=== PATIENT | male | born 1960 ===

== ENCOUNTER 2025-04-03 16:32 | Inpatient (IN) | payer MEDICARE, SELFPAY ==
[2025-04-03] VITALS (53 sets, daily range): BP systolic 136–251; BP diastolic 84–168; PULSE 70–86; RESP 12–22; TEMP 36.5; O2SAT 94–99; BMI 29.5
--- NOTE | 2025-04-03 16:56 | EKG_ITS ---
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
--- NOTE | 2025-04-03 17:52 | ED.GENADULT ---
HPI - General Adult General Chief complaint: Hypertension Stated complaint: Dizziness [id number] Time Seen by Provider: 04/03/25 17:31 History of Present Illness HPI narrative: Patient here for off and on dizziness for past 3 weeks. Blood pressure noted. Patient ran out of his blood pressure medication 1 month ago. Patient is supposed to be on amlodipine and losartan. He is visiting here from [place]. He is staying with his daughter because son-in-law is on deployment. He denies denies any chest pain palpitations no numbness tingling or weakness. No slurred speech or facial droop. No headache. Patient felt lightheaded today again. Reviewed with him it is very important to take his blood pressure medications. To get refills. Patient in no distress at this time. No dizziness Related Data Previous Rx's ?Medication ?Instructions ?Recorded amlodipine 10 mg tablet 10 mg PO DAILY #30 tabs 04/05/25 blood sugar diagnostic (Glucocom #50 ea 04/05/25 Glucose strips) blood-glucose meter (Gluco Navii #1 ea 04/05/25 Glucose Monitor kit) glipizide 10 mg tablet 10 mg PO BIDWM #60 tabs 04/05/25 insulin glargine 100 unit/mL (3 30 unit (0.3 mL) SUBCUT BEDTIME 04/05/25 mL) subcutaneous pen (Lantus #15 mL Solostar U-100 Insulin) insulin lispro 100 unit/mL 3 unit (0.03 mL) SUBCUT AC #15 mL 04/05/25 subcutaneous solution (Admelog U-100 Insulin lispro) lancets (Lancets, Super Thin) #100 ea 04/05/25 losartan 50 mg tablet 50 mg PO DAILY #30 tabs 04/05/25 metoprolol succinate 25 mg 25 mg PO DAILY #30 tabs 04/05/25 tablet,extended release 24 hr Allergies Allergy/AdvReac Type Severity Reaction Status Date / Time No Known Drug Allergies Allergy Verified 04/03/25 16:47 Review of Systems Review of Systems Narrative: GENERAL: Negative chills, fatigue, malaise, fever, sweats. HEENT: Negative sinus pain, ear pain, sore throat RESPIRATORY: Negative dyspnea, cough CARDIOVASCULAR: Negative chest pain, palpitations GASTROINTESTINAL: Negative vomiting, nausea, abdominal pain : Negative dysuria, frequency, hematuria MUSCULOSKELETAL: Negative muscle or bony pain SKIN: Negative rash, skin lesions NEUROLOGIC: Negative weakness, numbness positive dizziness ROS Unobtainable: All systems reviewed & are unremarkable except as noted in HPI and below Patient History Social History household members: spouse Smoking Status: Never smoker alcohol intake: never Exam Narrative Exam Narrative: GENERAL: in no distress, not toxic not dyspneic HEAD: Normocephalic. EYES: Pupils equal round ENT: Mucous membranes moist. NECK: Trachea midline. CARDIOVASCULAR: Regular rate and rhythm RESPIRATORY: Clear to auscultation. Breath sounds equal bilaterally. No wheezes, rales, or rhonchi. GASTROINTESTINAL: Abdomen soft, non-tender EXTREMITIES: No gross deformities. BACK: No flank tenderness. NEURO: AOx4. Clear speech fast exam is negative. No facial droop light touch intact bilateral face and hands strong equal chemical plant manager SKIN: Warm and dry PSYCH: Not anxious, is cooperative Initial Vital Signs Initial Vital Signs: Vital Signs Temperature 97.7 F 04/03/25 16:44 Pulse Rate 77 04/03/25 16:44 Respiratory Rate 16 04/03/25 16:44 Blood Pressure 249/130 H 04/03/25 16:44 Pulse Oximetry 97 04/03/25 16:44 Oxygen Delivery Method Room Air 04/03/25 16:44 Course Orders Ordered: Discontinued Medications Amlodipine Besylate (Amlodipine 5 Mg Tablet) 5 mg PO NOW ONE Stop: 04/03/25 17:59 Last Admin: 04/03/25 18:20 Dose: 5 mg Documented By: MANPREET Amlodipine Besylate (Amlodipine 5 Mg Tablet) 5 mg PO NOW ONE Stop: 04/03/25 19:55 Last Admin: 04/03/25 20:04 Dose: 5 mg Documented By: ENZOF Amlodipine Besylate (Amlodipine 5 Mg Tablet) 10 mg PO DAILY [facility] Last Admin: 04/05/25 08:11 Dose: 10 mg Documented By: Admin: 04/04/25 08:25 Dose: 10 mg Documented By: Heparin Sodium (Porcine) (Heparin 5,000 Unit/Ml Vial) 5,000 unit SUBCUT BID [facility] Last Admin: 04/05/25 08:10 Dose: 5,000 unit Documented By: Admin: 04/04/25 21:14 Dose: 5,000 unit Documented By: ELSA Nicardipine HCl 25 mg/ Sodium (Chloride) 250 mls @ 50 mls/hr IV TITRATE TANESHA; Protocol Last Titration: 04/04/25 12:07 Dose: 0 mg/hr, 0 mls/hr Documented By: Titration: 04/04/25 11:40 Dose: 2.5 mg/hr, 25 mls/hr Documented By: Admin: 04/04/25 10:55 Dose: 5 mg/hr, 50 mls/hr Documented By: Titration: 04/04/25 10:36 Dose: Infused Documented By: Titration: 04/04/25 09:33 Dose: 5 mg/hr, 50 mls/hr Documented By: Titration: 04/04/25 03:38 Dose: 2.5 mg/hr, 25 mls/hr Documented By: Admin: 04/04/25 02:38 Dose: 5 mg/hr, 50 mls/hr Documented By: Titration: 04/04/25 02:38 Dose: Infused Documented By: Titration: 04/04/25 02:09 Dose: 5 mg/hr, 50 mls/hr Documented By: Titration: 04/04/25 01:07 Dose: 7.5 mg/hr, 75 mls/hr Documented By: Titration: 04/03/25 23:56 Dose: 5 mg/hr, 50 mls/hr Documented By: Titration: 04/03/25 22:07 Dose: 2.5 mg/hr, 25 mls/hr Documented By: Admin: 04/03/25 21:31 Dose: 5 mg/hr, 50 mls/hr Documented By: ENZOF Dextrose (D10w) 100 mls @ 999 mls/hr IV PRN PRN PRN Reason: Hypoglycemia Sodium Chloride (Normal Saline 0.9%) 1,000 mls @ 75 mls/hr IV CONT TANESHA Stop: 04/04/25 10:00 Last Infusion: 04/04/25 10:27 Dose: Infused Documented By: Admin: 04/04/25 01:05 Dose: 75 mls/hr Documented By: JT Insulin Glargine (Insulin Glargine 100 Unit/Ml 3ml Pen) 20 unit SUBCUT BEDTIME TANESHA Insulin Glargine (Insulin Glargine 100 Unit/Ml 3ml Pen) 20 unit SUBCUT NOW ONE Stop: 04/04/25 00:22 Last Admin: 04/04/25 01:22 Dose: 20 unit Documented By: ELSA Co-signed By: ERICK Insulin Glargine (Insulin Glargine 100 Unit/Ml 3ml Pen) 30 unit SUBCUT BEDTIME [facility] Last Admin: 04/04/25 21:13 Dose: 30 unit Documented By: ELSA Co-signed By: ROME Insulin Human Lispro (Insulin Lispro 100 Unit/Ml 3ml Vial) 0 unit SUBCUT ACHS [facility]; Protocol Last Admin: 04/05/25 12:11 Dose: 3 unit Documented By: LORRIE Co-signed By: SHUKRI Admin: 04/05/25 08:08 Dose: 5 unit Documented By: LORRIE Co-signed By: SHUKRI Admin: 04/04/25 21:13 Dose: 3 unit Documented By: ELSA Co-signed By: ROME Admin: 04/04/25 16:56 Dose: 3 unit Documented By: Co-signed By: SHUKRI Admin: 04/04/25 11:53 Dose: 8 unit Documented By: Co-signed By: SHUKRI Admin: 04/04/25 08:24 Dose: 8 unit Documented By: Co-signed By: SHUKRI Insulin Human Lispro (Insulin Lispro 100 Unit/Ml 3ml Vial) 5 unit SUBCUT AC [facility] Insulin Human Lispro (Insulin Lispro 100 Unit/Ml 3ml Vial) 3 unit SUBCUT AC [facility] Last Admin: 04/05/25 12:11 Dose: 3 unit Documented By: LORRIE Co-signed By: SHUKRI Losartan Potassium (Losartan 25 Mg Tablet) 25 mg PO NOW ONE Stop: 04/03/25 17:59 Last Admin: 04/03/25 18:20 Dose: 25 mg Documented By: MANPREET Losartan Potassium (Losartan 25 Mg Tablet) 25 mg PO NOW ONE Stop: 04/03/25 19:55 Last Admin: 04/03/25 20:04 Dose: 25 mg Documented By: JAY Losartan Potassium (Losartan 50 Mg Tablet) 50 mg PO DAILY [facility] Last Admin: 04/05/25 08:09 Dose: 50 mg Documented By: Admin: 04/04/25 08:25 Dose: 50 mg Documented By: Metoprolol Succinate (Metoprolol Er 25 Mg Tablet) 25 mg PO DAILY [facility] Last Admin: 04/05/25 08:09 Dose: 25 mg Documented By: LORRIE Metoprolol Tartrate (Metoprolol Ir 25 Mg Tablet) 25 mg PO TID [facility] Last Admin: 04/04/25 10:57 Dose: 25 mg Documented By: Naloxone HCl (Naloxone 0.4 Mg/Ml Vial) 0.2 mg IV Q2MIN PRN PRN Reason: Opiate Reversal Non-Formulary Medication (Glipizide) 10 mg PO BIDWM [facility] Last Admin: 04/05/25 08:20 Dose: Not Given Documented By: Admin: 04/04/25 14:44 Dose: Not Given Documented By: Admin: 04/04/25 08:24 Dose: Not Given Documented By: Sodium Chloride (Sodium Chloride 0.9% Flush) 10 ml IV PRN PRN PRN Reason: Flush Sodium Chloride (Sodium Chloride 0.9% Flush) 10 ml IV BID [facility] Last Admin: 04/05/25 08:11 Dose: 10 ml Documented By: LORRIE Vital Signs Vital signs: Vital Signs - 8 hr 04/03/25 16:44 04/03/25 16:51 04/03/25 16:53 Temperature 97.7 F Pulse Rate 77 79 80 Respiratory Rate 16 Blood Pressure 249/130 H Pulse Oximetry 97 97 99 Oxygen Delivery Method Room Air 04/03/25 16:53 04/03/25 17:00 04/03/25 17:22 Temperature Pulse Rate 75 74 Respiratory Rate Blood Pressure 222/135 H Pulse Oximetry 98 97 Oxygen Delivery Method 04/03/25 17:22 04/03/25 17:30 04/03/25 17:31 Temperature Pulse Rate 75 76 Respiratory Rate Blood Pressure 190/119 H Pulse Oximetry 97 97 Oxygen Delivery Method 04/03/25 17:31 04/03/25 17:45 04/03/25 17:45 Temperature Pulse Rate 77 Respiratory Rate Blood Pressure 205/118 H 195/111 H Pulse Oximetry 97 Oxygen Delivery Method 04/03/25 18:00 04/03/25 18:01 04/03/25 18:01 Temperature Pulse Rate 82 79 Respiratory Rate Blood Pressure 251/125 H Pulse Oximetry 98 97 Oxygen Delivery Method 04/03/25 18:16 04/03/25 18:16 04/03/25 18:20 Temperature Pulse Rate 75 74 Respiratory Rate Blood Pressure 195/120 H 195/120 H Pulse Oximetry 98 Oxygen Delivery Method 04/03/25 18:36 04/03/25 18:37 04/03/25 18:37 Temperature Pulse Rate 71 70 Respiratory Rate Blood Pressure 213/127 H Pulse Oximetry 99 98 Oxygen Delivery Method 04/03/25 18:45 04/03/25 18:45 04/03/25 19:00 Temperature Pulse Rate 74 75 Respiratory Rate Blood Pressure 237/127 H Pulse Oximetry 98 96 Oxygen Delivery Method 04/03/25 19:01 04/03/25 19:01 04/03/25 19:10 Temperature Pulse Rate 80 75 Respiratory Rate Blood Pressure 222/109 H Pulse Oximetry 95 98 Oxygen Delivery Method 04/03/25 19:10 04/03/25 19:16 04/03/25 19:16 Temperature Pulse Rate 73 Respiratory Rate Blood Pressure 216/111 H 245/168 H Pulse Oximetry 99 Oxygen Delivery Method 04/03/25 19:17 04/03/25 19:17 04/03/25 19:30 Temperature Pulse Rate 76 77 Respiratory Rate Blood Pressure 232/125 H Pulse Oximetry 98 97 Oxygen Delivery Method 04/03/25 19:31 04/03/25 19:31 04/03/25 19:45 Temperature Pulse Rate 80 78 Respiratory Rate Blood Pressure 218/107 H Pulse Oximetry 97 98 Oxygen Delivery Method 04/03/25 19:45 04/03/25 20:00 04/03/25 20:00 Temperature Pulse Rate 83 Respiratory Rate Blood Pressure 231/117 H 223/137 H Pulse Oximetry 97 Oxygen Delivery Method 04/03/25 20:04 04/03/25 20:15 04/03/25 20:15 Temperature Pulse Rate 78 76 Respiratory Rate Blood Pressure 233/137 H 225/126 H Pulse Oximetry 97 Oxygen Delivery Method 04/03/25 20:30 04/03/25 20:31 04/03/25 20:31 Temperature Pulse Rate 74 79 Respiratory Rate Blood Pressure 218/124 H Pulse Oximetry 97 97 Oxygen Delivery Method 04/03/25 20:46 04/03/25 20:46 04/03/25 21:00 Temperature Pulse Rate 77 74 Respiratory Rate Blood Pressure 208/116 H Pulse Oximetry 97 98 Oxygen Delivery Method 04/03/25 21:01 04/03/25 21:01 04/03/25 21:16 Temperature Pulse Rate 71 76 Respiratory Rate Blood Pressure 203/118 H Pulse Oximetry 98 97 Oxygen Delivery Method 04/03/25 21:16 04/03/25 21:30 04/03/25 21:30 Temperature Pulse Rate 72 Respiratory Rate Blood Pressure 205/114 H 203/109 H Pulse Oximetry 97 Oxygen Delivery Method 04/03/25 21:37 04/03/25 21:37 04/03/25 21:40 Temperature Pulse Rate 74 76 Respiratory Rate Blood Pressure 219/168 H Pulse Oximetry 98 98 Oxygen Delivery Method 04/03/25 21:40 04/03/25 21:43 04/03/25 21:43 Temperature Pulse Rate 77 Respiratory Rate Blood Pressure 196/109 H 174/104 H Pulse Oximetry 96 Oxygen Delivery Method 04/03/25 21:45 04/03/25 21:45 04/03/25 21:48 Temperature Pulse Rate 79 76 Respiratory Rate Blood Pressure 177/104 H Pulse Oximetry 96 96 Oxygen Delivery Method 04/03/25 21:48 04/03/25 21:51 04/03/25 21:51 Temperature Pulse Rate 86 Respiratory Rate Blood Pressure 165/99 H 195/109 H Pulse Oximetry 96 Oxygen Delivery Method 04/03/25 21:54 04/03/25 21:54 Temperature Pulse Rate 80 Respiratory Rate Blood Pressure 161/87 H Pulse Oximetry 96 Oxygen Delivery Method Medical Decision Making Lab Data 04/04/25 05:14 04/04/25 05:14 Labs: Lab Results 04/03/25 Range/Units 17:05 WBC 6.1 (4.5-11.0) X10^3/uL RBC 5.74 (4.5-5.9) X10^6/uL Hgb 18.0 H (13.5-17.5) g/dL Hct 50.4 (41-53) % MCV 87.8 (80-100) fL MCH 31.3 (26-34) PG MCHC 35.6 (30-36) % RDW 12.4 (11.6-14.8) % Plt Count 159 (150-400) X10^3/uL Neut % (Auto) 47.2 L (50-75) % Lymph % (Auto) 41.9 H (25-40) % Posey % (Auto) 8.4 (3-14) % Eos % (Auto) 2.0 (2-4) % Baso % (Auto) 0.5 (0-2) % Neut # (Auto) 2900 (2520-0900) /uL Lymph # (Auto) 2600 (5933-5986) /uL Posey # (Auto) 500 (0-900) /uL Eos # (Auto) 100 (0-450) /uL Baso # (Auto) 0 (0-100) /uL Sodium 132 L (137-145) mmol/L Potassium 4.1 (3.4-5.1) mmol/L Chloride 97 L (98-107) mmol/L Carbon Dioxide 24 (22-32) mmol/L BUN 20 (9-20) mg/dL Creatinine 1.27 H (0.66-1.25) mg/dL Estimated GFR > 60 (>60) mL/min BUN/Creatinine Ratio 15.7 (6-22) Glucose 424 H (70-99) mg/dL Calcium 9.4 (8.4-10.2) mg/dL Total Bilirubin 0.9 (0.2-1.3) mg/dL AST 39 (17-59) IU/L ALT 26 (<50) IU/L Alkaline Phosphatase 120 (38-126) U/L Total Creatine Kinase 160 (55-170) U/L Troponin I 0.022 (0.01-0.034) ng/mL Total Protein 8.6 H (6.3-8.2) g/dL Albumin 4.6 (3.5-5.0) g/dL Globulin 4.0 (1.7-4.1) g/dL Albumin/Globulin Ratio 1.2 (1.0-2.8) Imaging Data CT scan - head: Radiologist's Impression: [address] [address] [address] Scan Report Signed Patient: Enoch Gonzalez MR#: [id number] : 1960 Acct:[id number] Age/Sex: 64 / M Date of Service: 04/03/25 Loc: ED Accession Number: [id number] Procedure: CT head/brain wo con Ordering Provider: Paulino Finley MD PROCEDURE: CT HEAD/BRAIN WO CON INDICATIONS: Dizzy TECHNIQUE: Noncontrast 4.5 mm thick angled axial sections acquired from the foramen magnum to the vertex, with coronal and sagittal reformats. For radiation dose reduction, the following was used: automated exposure control, adjustment of mA and/or kV according to patient size. COMPARISON: None. FINDINGS: Image quality: Diagnostic. CSF spaces: Basal cisterns are patent. No extra-axial fluid collections. Left posterior fossa arachnoid cyst suspected. Ventricles are normal in size and shape. Brain: No midline shift. No intracranial mass effect or hemorrhage. Botello-white matter interface is normal. Skull and face: Calvarium and visualized facial bones are intact, without suspicious lesions. Sinuses: Visualized sinuses and mastoids are clear. IMPRESSION: No acute intracranial pathology. Dictated by: Clifford Meyer M.D. on 04/03/2025 at 19:29 Approved by: Clifford Meyer M.D. on 04/03/2025 at 19:31 [facility] Narrative Medical decision making narrative: Patient here for off and on dizziness for past 3 weeks. Blood pressure noted. Patient ran out of his blood pressure medication 1 month ago. Patient is supposed to be on amlodipine and losartan. He is visiting here from [place]. He is staying with his daughter because son-in-law is on deployment. He denies denies any chest pain palpitations no numbness tingling or weakness. No slurred speech or facial droop. No headache. Patient felt lightheaded today again. Reviewed with him it is very important to take his blood pressure medications. To get refills. Patient in no distress at this time. No dizziness MDM After history and exam, CBC CMP troponin head CT EKG amlodipine losartan Differential considered: Includes but not limited to hyperintensity emergency hypertensive urgency stroke Medical records reviewed: No recent visit for this complaint Lab Test results independently reviewed as above. Pertinent findings: WBC 6.1 hemoglobin 18 sodium 132 potassium 4.1 BUN 20 creatinine 1.27 troponin 0.022 Independently reviewed EKG normal sinus rhythm rate [address]-elevation or depression. Right bundle branch block seen. Imaging studies independently reviewed: CT head no acute finding Consultations: 10:[address] Epstein, will admit to ICU Re-evaluations: 9:32 p.m.. Patient requiring nicardipine drip for blood pressure control. Patient agrees and understands need for admission Discussion: Appropriate for admission for IV nicardipine for blood pressure control. Diagnosis: Hypertensive urgency Critical Care Time Critical Care Time Attestation: Critical Care Time 35 minutes: Critical care time is separate from other billable procedures. This critical care time includes consultation with family and other consulting doctors, review of records, and interpretation of data from labs, EKGs, imaging, etc. Discharge Plan Departure Patient Disposition: Admitted as Observation Clinical Impression: Hypertensive urgency Admit Date/Time: 04/03/25 22:16 Admit Provider: Ivan Epstein
--- NOTE | 2025-04-03 17:58 | DI.CT.S_ITS ---
PROCEDURE: CT HEAD/BRAIN WO CON INDICATIONS: Dizzy TECHNIQUE: Noncontrast 4.5 mm thick angled axial sections acquired from the foramen magnum to the vertex, with coronal and sagittal reformats. For radiation dose reduction, the following was used: automated exposure control, adjustment of mA and/or kV according to patient size. COMPARISON: None. FINDINGS: Image quality: Diagnostic. CSF spaces: Basal cisterns are patent. No extra-axial fluid collections. Left posterior fossa arachnoid cyst suspected. Ventricles are normal in size and shape. Brain: No midline shift. No intracranial mass effect or hemorrhage. Botello- white matter interface is normal. Skull and face: Calvarium and visualized facial bones are intact, without suspicious lesions. Sinuses: Visualized sinuses and mastoids are clear. IMPRESSION: No acute intracranial pathology. Dictated by: Clifford Meyer M.D. on 04/03/2025 at 19:29 Approved by: Clifford Meyer M.D. on 04/03/2025 at 19:31
[2025-04-03] MEDS: LOSARTAN 25 MG TABLET PO ×2 (18:20→20:04)
[2025-04-03 18:27] LABS: Add Manual Diff / Slide Review NO; Hematocrit 50.4 % (41-53); Hemoglobin 18.0 g/dL (13.5-17.5); Lymphocytes Absolute Auto 2600 /uL (1100-4500); Mean Corpuscular HGB Conc 35.6 % (30-36); Mean Corpuscular Hemoglobin 31.3 PG (26-34); Mean Corpuscular Volume 87.8 fL (80-100); Platelet Count 159 X10^3/uL (150-400)
[2025-04-03 18:41] LABS: Alanine Aminotransferase 26 IU/L (<50); Albumin 4.6 g/dL (3.5-5.0); Albumin Globulin Ratio 1.2 (1.0-2.8); Alkaline Phosphatase 120 U/L (38-126); Blood Urea Nitrogen 20 mg/dL (9-20); Calcium 9.4 mg/dL (8.4-10.2); Carbon Dioxide 24 mmol/L (22-32); Chloride 97 mmol/L (98-107); Creatine Kinase 160 U/L (55-170); Estimated Glomerular Filt Rate > 60 mL/min (>60); Globulin 4.0 g/dL (1.7-4.1); Glucose 424 mg/dL (70-99); Potassium 4.1 mmol/L (3.4-5.1); Sodium 132 mmol/L (137-145); Total Protein 8.6 g/dL (6.3-8.2)
[2025-04-03 18:44] LABS: HEMOLYSIS 77 (0-50)
[2025-04-03 18:52] LABS: Troponin I 0.022 ng/mL (0.01-0.034)
--- NOTE | 2025-04-03 19:17 | PC.NURSE ---
pt states mild dizziness. Denies any pain or SOB. Denies MILLER or nausea
--- NOTE | 2025-04-03 19:36 | PC.NURSE ---
provider updated on patients BP. Provider in room and reminding patient to try and get regular BP medications from daughter. Pt on phone calling daughter for info
--- NOTE | 2025-04-03 21:50 | PC.NURSE ---
Pt denies any change in symptoms. States he is hungry and needs to pee. Provider updated on BP trending down with medication
[2025-04-04] VITALS (45 sets, daily range): BP systolic 110–179; BP diastolic 62–109; PULSE 53–80; RESP 9–31; TEMP 36.6; O2SAT 93–97
[2025-04-04] MEDS: SODIUM CHLORIDE 0.9% 1,000 ML 75 ML IV (01:05)
[2025-04-04 01:12] LABS: MRSA (Nasal) PCR NOT DETECTED (Not Detect)
[2025-04-04] MEDS: INSULIN GLARGINE 100 UNIT/ML 3ML PEN 20 UNIT SUBCUT (01:22)
--- NOTE | 2025-04-04 04:21 | P.HP_ITS ---
History of Present Illness History of Present Illness Date Patient Seen: 04/03/25 Time Patient Seen: 23:19 Chief complaint: Dizziness [id number] Narrative: 64-year-old male with past medical history of hypertension, presents with elevated blood pressure lightheadedness. Per the patient's report, the patient ran out of his blood pressure medication for the last month. The patient was on amlodipine and losartan. The patient is here visiting from [place]. Today the patient started to have some lightheaded which she has been intermittently experiencing over the last few weeks. The patient also checked his blood pressure and noted to be very elevated. Otherwise the patient denies any focal weakness, numbness, slurred speech, facial drooping or headache. In the emergency room, the patient was very hypertensive with systolic as high as [address] of the head shows no acute finding. Lab shows a sodium of 132 creatinine 1.27 and a glucose of 424. Trope was 0.02. EKG shows no signs of acute ischemia. The patient was given multiple antihypertensive IV medication followed by nicardipine drip. Our ER physician requested admission to the ICU for blood pressure control. COUNT INCLUDES THE [facility] Social History household members: spouse Smoking Status: Never smoker alcohol intake: never Meds Home Medications and Allergies Home Medications ?Medication ?Instructions ?Recorded ?Confirmed ?Type amlodipine 10 mg tablet 10 mg PO DAILY 04/03/2503/23 History glipizide 10 mg tablet 10 mg PO BID 04/03/25 History losartan 50 mg tablet 50 mg PO DAILY 04/03/2503/23 History Allergies Allergy/AdvReac Type Severity Reaction Status Date / Time No Known Drug Allergies Allergy Verified 04/03/25 16:47 Review of Systems Review of Systems ROS: Yes All systems reviewed with the patient and are negative except as otherwise documented Exam Vital Signs (past 8 hours): - 04/03/25 20:30 04/03/25 20:31 04/03/25 20:31 Pulse Rate 74 79 Respiratory Rate Blood Pressure 218/124 H Pulse Oximetry 97 97 Oxygen Delivery Method 04/03/25 20:46 04/03/25 20:46 04/03/25 21:00 Pulse Rate 77 74 Respiratory Rate Blood Pressure 208/116 H Pulse Oximetry 97 98 Oxygen Delivery Method 04/03/25 21:01 04/03/25 21:01 04/03/25 21:16 Pulse Rate 71 76 Respiratory Rate Blood Pressure 203/118 H Pulse Oximetry 98 97 Oxygen Delivery Method 04/03/25 21:16 04/03/25 21:30 04/03/25 21:30 Pulse Rate 72 Respiratory Rate Blood Pressure 205/114 H 203/109 H Pulse Oximetry 97 Oxygen Delivery Method 04/03/25 21:37 04/03/25 21:37 04/03/25 21:40 Pulse Rate 74 76 Respiratory Rate Blood Pressure 219/168 H Pulse Oximetry 98 98 Oxygen Delivery Method 04/03/25 21:40 04/03/25 21:43 04/03/25 21:43 Pulse Rate 77 Respiratory Rate Blood Pressure 196/109 H 174/104 H Pulse Oximetry 96 Oxygen Delivery Method 04/03/25 21:45 04/03/25 21:45 04/03/25 21:48 Pulse Rate 79 76 Respiratory Rate Blood Pressure 177/104 H Pulse Oximetry 96 96 Oxygen Delivery Method 04/03/25 21:48 04/03/25 21:51 04/03/25 21:51 Pulse Rate 86 Respiratory Rate Blood Pressure 165/99 H 195/109 H Pulse Oximetry 96 Oxygen Delivery Method 04/03/25 21:54 04/03/25 21:54 04/03/25 22:00 Pulse Rate 80 79 Respiratory Rate Blood Pressure 161/87 H Pulse Oximetry 96 97 Oxygen Delivery Method 04/03/25 22:01 04/03/25 22:01 04/03/25 22:05 Pulse Rate 79 79 Respiratory Rate Blood Pressure 160/89 H Pulse Oximetry 96 96 Oxygen Delivery Method 04/03/25 22:05 04/03/25 22:10 04/03/25 22:10 Pulse Rate 80 Respiratory Rate Blood Pressure 150/87 H 149/84 H Pulse Oximetry 96 Oxygen Delivery Method 04/03/25 22:15 04/03/25 22:15 04/03/25 22:20 Pulse Rate 80 78 Respiratory Rate Blood Pressure 151/92 H Pulse Oximetry 96 96 Oxygen Delivery Method 04/03/25 22:20 04/03/25 22:25 04/03/25 22:25 Pulse Rate 79 Respiratory Rate Blood Pressure 152/91 H 136/89 Pulse Oximetry 97 Oxygen Delivery Method 04/03/25 22:30 04/03/25 22:30 04/03/25 22:35 Pulse Rate 78 77 Respiratory Rate Blood Pressure 146/92 H Pulse Oximetry 97 98 Oxygen Delivery Method 04/03/25 22:35 04/03/25 22:43 04/03/25 22:43 Pulse Rate Respiratory Rate Blood Pressure 154/96 H 155/97 H Pulse Oximetry Oxygen Delivery Method Room Air 04/03/25 22:43 04/03/25 23:20 04/03/25 23:27 Pulse Rate 77 Respiratory Rate 22 Blood Pressure Pulse Oximetry 94 Oxygen Delivery Method Room Air 04/03/25 23:30 04/03/25 23:53 04/03/25 23:53 Pulse Rate 75 78 Respiratory Rate 14 12 Blood Pressure 180/111 H Pulse Oximetry 96 Oxygen Delivery Method 04/04/25 00:00 04/04/25 00:00 04/04/25 00:16 Pulse Rate 76 78 Respiratory Rate 10 L 23 Blood Pressure 162/93 H Pulse Oximetry 93 95 Oxygen Delivery Method 04/04/25 00:16 04/04/25 00:30 04/04/25 00:30 Pulse Rate 75 Respiratory Rate 9 L Blood Pressure 164/94 H 168/94 H Pulse Oximetry Oxygen Delivery Method 04/04/25 00:45 04/04/25 00:45 04/04/25 01:00 Pulse Rate 74 Respiratory Rate 10 L Blood Pressure 172/100 H 179/75 H Pulse Oximetry Oxygen Delivery Method 04/04/25 01:00 04/04/25 01:15 04/04/25 01:15 Pulse Rate 73 73 Respiratory Rate 15 17 Blood Pressure 164/83 H Pulse Oximetry Oxygen Delivery Method 04/04/25 01:30 04/04/25 01:30 04/04/25 01:45 Pulse Rate 75 Respiratory Rate 14 Blood Pressure 151/76 H 154/76 H Pulse Oximetry Oxygen Delivery Method 04/04/25 01:45 04/04/25 02:00 04/04/25 02:00 Pulse Rate 71 69 Respiratory Rate 14 16 Blood Pressure 148/76 H Pulse Oximetry Oxygen Delivery Method 04/04/25 02:15 04/04/25 02:15 04/04/25 02:30 Pulse Rate 79 77 Respiratory Rate 17 16 Blood Pressure 146/73 H Pulse Oximetry Oxygen Delivery Method 04/04/25 02:30 04/04/25 03:00 04/04/25 03:00 Pulse Rate 69 Respiratory Rate 16 Blood Pressure 149/80 H 142/79 H Pulse Oximetry Oxygen Delivery Method 04/04/25 03:30 04/04/25 03:30 04/04/25 04:00 Pulse Rate 69 74 Respiratory Rate 19 18 Blood Pressure 130/77 Pulse Oximetry Oxygen Delivery Method 04/04/25 04:01 04/04/25 04:01 Pulse Rate 80 Respiratory Rate 22 Blood Pressure 131/75 Pulse Oximetry Oxygen Delivery Method Oxygen Delivery Method Room Air Narrative Exam Narrative: Physical Exam: GENERAL: The patient is not in any acute distressed. Awake and alert. HEENT: Nonicteric sclerae, PERRLA, EOMI. Oropharynx clear. Moist mucous membranes. Conjunctivae appear well perfused. HEART: Regular rate and rhythm without murmurs. No lower extremities edema. LUNGS: Clear to auscultation bilaterally. No wheezing, crackles or rhonchi ABDOMEN: Soft, positive bowel sounds, nontender. SKIN: No rash, no excessive bruising, petechiae, or purpura. NEUROLOGIC: AxO x 3. Cranial nerves II-XII intact without motor/sensory deficit. Objective Labs 04/03/25 17:05 04/03/25 17:05 Labs: Laboratory Results - last 24 hr 04/03/25 04/03/25 04/03/25 17:05 22:45 23:08 WBC 6.1 RBC 5.74 Hgb 18.0 H Hct 50.4 MCV 87.8 MCH 31.3 MCHC 35.6 RDW 12.4 Plt Count 159 Neut % (Auto) 47.2 L Lymph % (Auto) 41.9 H [place] % (Auto) 8.4 Eos % (Auto) 2.0 Baso % (Auto) 0.5 Neut # (Auto) 2900 Lymph # (Auto) 2600 [place] # (Auto) 500 Eos # (Auto) 100 Baso # (Auto) 0 Sodium 132 L Potassium 4.1 Chloride 97 L Carbon Dioxide 24 BUN 20 Creatinine 1.27 H Estimated GFR > 60 BUN/Creatinine Ratio 15.7 Glucose 424 H POC Whole Bld Glucose 314 H Calcium 9.4 Total Bilirubin 0.9 AST 39 ALT 26 Alkaline Phosphatase 120 Total Creatine Kinase 160 Troponin I 0.022 Total Protein 8.6 H Albumin 4.6 Globulin 4.0 Albumin/Globulin Ratio 1.2 Nasal Screen MRSA (PCR) Not detected Assessment & Plan Assessment & Plan narrative: Hypertensive urgency. Admit the patient to ICU. Systolic blood pressure now in the 160s to 170. Continue IV nicardipine. Of note patient elevated blood pressure likely due to noncompliance as patient has not taken any of his antihypertensive medication over the last month. Patient was on amlodipine and losartan at home. Will continue nicardipine drip overnight and will need to restart oral antihypertensive medication in the morning. Patient has been counseled regarding compliance with taking his medication. Hyperglycemia with history of NIDDM. Glucose in the 400. No sign of DKA. Again patient has a history of [id number] diabetes but unsure if he takes any medication. Subcu insulin and monitor glucose. Will check A1c. Patient will need to follow-up PCP with ongoing diabetes management. Hyponatremia. Sodium 132. Likely due to hypoglycemia. Pseudo hyponatremia. Treat hyperglycemia monitor sodium level. Mild elevated creatinine. Unclear what baseline creatinine is. Creatinine today 1.2. Monitor for now. DVT prophylaxis heparin subcu. CODE STATUS full code. Disposition likely home in 2 days - As the provider of this telehealth evaluation, requested by the patient's evaluating physician, I attest that I introduced myself to the patient, provided my credentials and determined that telemedicine via a real-time, 2 way interactive audio and video platform is an appropriate and effective means of providing this service. - I reviewed the patient's chart and had a discussion with the member of the patient's treatment team. - The patient and I mutually agreed with continuation of this evaluation via telemedicine. The patient consented for the telemedicine evaluation. - This virtual encounter was taken place from [place] by Dr. Ivan Epstein. The patient was evaluated at [facility]. The encounter was approximately 35 minutes. The nurse was present during the entire time of the encounter and was able assists with the stethoscope to listen to the patients. Time-Based Coding :: [TOTAL MINUTES] spent with patient and on the chart (including review of chart, obtaining history, exam, reviewing outside data, placing orders, documenting exam and treatment plan, and counseling patient) on [DATE]. Quality VTE Deep Vein Thrombosis/Pulmonary Embolism Present on Admission: No
[2025-04-04 05:53] LABS: Blood Urea Nitrogen 23 mg/dL (9-20); Calcium 8.4 mg/dL (8.4-10.2); Carbon Dioxide 22 mmol/L (22-32); Chloride 101 mmol/L (98-107); Estimated Glomerular Filt Rate > 60 mL/min (>60); Glucose 418 mg/dL (70-99); HEMOLYSIS < 15 (0-50); Potassium 3.6 mmol/L (3.4-5.1); Sodium 131 mmol/L (137-145)
[2025-04-04 06:03] LABS: Add Manual Diff / Slide Review NO; Hematocrit 43.8 % (41-53); Hemoglobin 15.5 g/dL (13.5-17.5); Lymphocytes Absolute Auto 2400 /uL (1100-4500); Mean Corpuscular HGB Conc 35.3 % (30-36); Mean Corpuscular Hemoglobin 30.9 PG (26-34); Mean Corpuscular Volume 87.6 fL (80-100); Platelet Count 131 X10^3/uL (150-400)
[2025-04-04 06:08] LABS: Hemoglobin A1C% w Est Avg Glu 13.2 % (4.0-6.0)
--- NOTE | 2025-04-04 07:54 | P.PN_ITS ---
Subjective Subjective Date Patient Seen: 04/04/25 Interval history: This is a 64-year-old male with past medical history of hypertension, presents with elevated blood pressure lightheadedness. Per the patient's report, the patient ran out of his blood pressure medication for the last month. The patient was on amlodipine and losartan. The patient is here visiting from [place]. Today the patient started to have some lightheaded which she has been intermittently experiencing over the last few weeks. The patient also checked his blood pressure and noted to be very elevated. Otherwise the patient denies any focal weakness, numbness, slurred speech, facial drooping or headache. In the emergency room, the patient was very hypertensive with systolic as high as [address] of the head shows no acute finding. Lab shows a sodium of 132 creatinine 1.27 and a glucose of 424. Trope was 0.02. EKG shows no signs of acute ischemia. The patient was given multiple antihypertensive IV medication followed by nicardipine drip. Our ER physician requested admission to the ICU for blood pressure control. 04/04: Creatinine 1.32. Glucose 418. A1c 13.2. Blood pressure 176/109 so metoprolol IR 25 mg t.i.d. was added to the losartan and amlodipine. He is being weaned off the nicardipine drip. He indicates a history of stroke in 2011. The Lantus dose has been increased for this evening. He had run out of his glipizide, losartan and amlodipine unfortunately. Meds Home Medications and Allergies Home Medications ?Medication ?Instructions ?Recorded ?Confirmed ?Type amlodipine 10 mg tablet 10 mg PO DAILY 04/03/25 04/03/25 History glipizide 10 mg tablet 10 mg PO BID 04/03/25 04/03/25 History losartan 50 mg tablet 50 mg PO DAILY 04/03/25 04/03/25 History Narrative Exam Narrative: Physical Exam: GENERAL: The patient is not in any acute distressed. Awake and alert. HEENT: Nonicteric sclerae, Moist mucous membranes. Conjunctivae appear well perfused. HEART: Regular rate and rhythm without murmurs. No lower extremities edema. LUNGS: Clear to auscultation bilaterally. No wheezing, crackles or rhonchi ABDOMEN: Soft, positive bowel sounds, nontender. SKIN: No rash, no excessive bruising, petechiae, or purpura. NEUROLOGIC: AxO x 3. Cranial nerves II-XII intact without motor/sensory deficit. Objective Labs 04/03/25 17:05 04/03/25 17:05 Labs: Laboratory Results - last 24 hr 04/03/25 04/03/25 04/03/25 17:05 22:45 23:08 WBC 6.1 RBC 5.74 Hgb 18.0 H Hct 50.4 MCV 87.8 MCH 31.3 MCHC 35.6 RDW 12.4 Plt Count 159 Neut % (Auto) 47.2 L Lymph % (Auto) 41.9 H [place] % (Auto) 8.4 Eos % (Auto) 2.0 Baso % (Auto) 0.5 Neut # (Auto) 2900 Lymph # (Auto) 2600 [place] # (Auto) 500 Eos # (Auto) 100 Baso # (Auto) 0 Sodium 132 L Potassium 4.1 Chloride 97 L Carbon Dioxide 24 BUN 20 Creatinine 1.27 H Estimated GFR > 60 BUN/Creatinine Ratio 15.7 Glucose 424 H POC Whole Bld Glucose 314 H Calcium 9.4 Total Bilirubin 0.9 AST 39 ALT 26 Alkaline Phosphatase 120 Total Creatine Kinase 160 Troponin I 0.022 Total Protein 8.6 H Albumin 4.6 Globulin 4.0 Albumin/Globulin Ratio 1.2 Nasal Screen MRSA (PCR) Not detected Assessment & Plan Hypertensive urgency. Systolic blood pressure now in the 160s to 170. Weaning off IV nicardipine. Of note patient elevated blood pressure likely due to noncompliance as patient has not taken any of his antihypertensive medication over the last month. Patient was on amlodipine and losartan at home. Resumed losartan and amlodipine this morning. Added metoprolol tartrate 25 mg t.i.d. Hyperglycemia with history of NIDDM. Glucose in the 400. No signs of DKA. Increase Lantus to 30 units tonight. Continue correctional scale Subcu insulin and monitor glucose. A1c 13.2. Patient will need to follow-up PCP with ongoing diabetes management. Hyponatremia. Sodium 132. Likely due to hypoglycemia. Pseudo hyponatremia. Treat hyperglycemia monitor sodium level. Mild elevated creatinine. Unclear what baseline creatinine is. Creatinine today 1.2. Monitor for now. DVT prophylaxis heparin subcu. CODE STATUS full code. Disposition likely home in 2 days Exam Vital Signs (past 8 hours): - 04/04/25 00:00 04/04/25 00:00 04/04/25 00:16 Pulse Rate 76 78 Respiratory Rate 10 L 23 Blood Pressure 162/93 H Pulse Oximetry 93 95 04/04/25 00:16 04/04/25 00:30 04/04/25 00:30 Pulse Rate 75 Respiratory Rate 9 L Blood Pressure 164/94 H 168/94 H Pulse Oximetry 04/04/25 00:45 04/04/25 00:45 04/04/25 01:00 Pulse Rate 74 Respiratory Rate 10 L Blood Pressure 172/100 H 179/75 H Pulse Oximetry 04/04/25 01:00 04/04/25 01:15 04/04/25 01:15 Pulse Rate 73 73 Respiratory Rate 15 17 Blood Pressure 164/83 H Pulse Oximetry 04/04/25 01:30 04/04/25 01:30 04/04/25 01:45 Pulse Rate 75 Respiratory Rate 14 Blood Pressure 151/76 H 154/76 H Pulse Oximetry 04/04/25 01:45 04/04/25 02:00 04/04/25 02:00 Pulse Rate 71 69 Respiratory Rate 14 16 Blood Pressure 148/76 H Pulse Oximetry 04/04/25 02:15 04/04/25 02:15 04/04/25 02:30 Pulse Rate 79 77 Respiratory Rate 17 16 Blood Pressure 146/73 H Pulse Oximetry 04/04/25 02:30 04/04/25 03:00 04/04/25 03:00 Pulse Rate 69 Respiratory Rate 16 Blood Pressure 149/80 H 142/79 H Pulse Oximetry 04/04/25 03:30 04/04/25 03:30 04/04/25 04:00 Pulse Rate 69 74 Respiratory Rate 19 18 Blood Pressure 130/77 Pulse Oximetry 04/04/25 04:01 04/04/25 04:01 04/04/25 04:30 Pulse Rate 80 70 Respiratory Rate 22 14 Blood Pressure 131/75 Pulse Oximetry 04/04/25 04:30 04/04/25 05:00 04/04/25 05:00 Pulse Rate 69 Respiratory Rate 13 Blood Pressure 141/78 H 132/104 H Pulse Oximetry 04/04/25 05:03 04/04/25 05:03 04/04/25 05:30 Pulse Rate 67 64 Respiratory Rate 17 13 Blood Pressure 138/84 Pulse Oximetry 04/04/25 05:30 04/04/25 05:34 04/04/25 05:34 Pulse Rate 69 Respiratory Rate 12 Blood Pressure 173/81 H 157/75 H Pulse Oximetry 04/04/25 06:00 04/04/25 06:00 Pulse Rate 72 Respiratory Rate 10 L Blood Pressure 135/78 Pulse Oximetry Oxygen Delivery Method Room Air Objective Labs 04/04/25 05:14 04/04/25 05:14 Labs: Laboratory Results - last 24 hr 04/03/25 04/03/25 04/03/25 17:05 22:45 23:08 WBC 6.1 RBC 5.74 Hgb 18.0 H Hct 50.4 MCV 87.8 MCH 31.3 MCHC 35.6 RDW 12.4 Plt Count 159 Neut % (Auto) 47.2 L Lymph % (Auto) 41.9 H [place] % (Auto) 8.4 Eos % (Auto) 2.0 Baso % (Auto) 0.5 Neut # (Auto) 2900 Lymph # (Auto) 2600 [place] # (Auto) 500 Eos # (Auto) 100 Baso # (Auto) 0 Sodium 132 L Potassium 4.1 Chloride 97 L Carbon Dioxide 24 BUN 20 Creatinine 1.27 H Estimated GFR > 60 BUN/Creatinine Ratio 15.7 Glucose 424 H POC Whole Bld Glucose 314 H Hemoglobin A1c Calcium 9.4 Total Bilirubin 0.9 AST 39 ALT 26 Alkaline Phosphatase 120 Total Creatine Kinase 160 Troponin I 0.022 Total Protein 8.6 H Albumin 4.6 Globulin 4.0 Albumin/Globulin Ratio 1.2 Nasal Screen MRSA (PCR) Not detected 04/04/25 05:14 WBC 6.4 RBC 4.99 Hgb 15.5 Hct 43.8 MCV 87.6 MCH 30.9 MCHC 35.3 RDW 12.5 Plt Count 131 L Neut % (Auto) 52.0 Lymph % (Auto) 37.4 [place] % (Auto) 8.4 Eos % (Auto) 1.8 L Baso % (Auto) 0.4 Neut # (Auto) 3300 Lymph # (Auto) 2400 [place] # (Auto) 500 Eos # (Auto) 100 Baso # (Auto) 0 Sodium 131 L Potassium 3.6 Chloride 101 Carbon Dioxide 22 BUN 23 H Creatinine 1.32 H Estimated GFR > 60 BUN/Creatinine Ratio 17.4 Glucose 418 H POC Whole Bld Glucose Hemoglobin A1c 13.2 H Calcium 8.4 Total Bilirubin AST ALT Alkaline Phosphatase Total Creatine Kinase Troponin I Total Protein Albumin Globulin Albumin/Globulin Ratio Nasal Screen MRSA (PCR) PFSH Social History household members: spouse Smoking Status: Never smoker alcohol intake: never Assessment & Plan Time-Based Coding :: [TOTAL MINUTES] spent with patient and on the chart (including review of chart, obtaining history, exam, reviewing outside data, placing orders, documenting exam and treatment plan, and counseling patient) on [DATE]. Quality VTE Deep Vein Thrombosis/Pulmonary Embolism Present on Admission: No
[2025-04-04] MEDS: INSULIN LISPRO 100 UNIT/ML 3ML VIAL SUBCUT ×4 (08:24→21:13)
[2025-04-04] MEDS: LOSARTAN 50 MG TABLET PO (08:25)
[2025-04-04] MEDS: METOPROLOL IR 25 MG TABLET PO (10:57)
--- NOTE | 2025-04-04 12:33 | CM.DANOTE ---
Patient is a 64 yo male who was admitted INPT Status on 04/03/25 for Dizziness. Pt has MCR for insurance and his PCP is in the state of [place]. EMR was reviewed. Per MD, pt with hypertension and ran out of his bp meds last mo and did not get them filled and admitted for Hypertensive Urgency and Hyperglycemia. On drip but attempting to transition to po meds later today. Not yet stable for discharge. SW met bedside with pt and explained role and he confirms that his permanent residence is with his in [place] but he has been visiting his youngest Dtr in [place] since October while her is on deployment and helping with his 2 yo and 8 mo old grandkids. Pt states plan was for him to return to [place] next week but son faby's deployment extended another couple weeks so pt likely not leaving until April. Pt confirms he has a PCP in [place] who will send in refills of his medications but that pt was too distracted with grandkids that he had not followed through on calling his PCP. Pt very independent at baseline and active, does not use DME for ambulation and drives. Pt's preference is home with Dtr at d/c and confirms she can transport. Pt also has 8 total adult children, 4 sons and 4 Dtrs, and close with all of them but they live from [place] to [facility] and [place]. Pt plans to try not to get stressed by caring for his grandkids. Plan: SW to follow for pt's labs to improve and transition from IV to PO meds for plan of back home to Dtr's house when medically stable. PHIL Álvarez Discharge Planning/Care Management CM Discharge Assessment Start: 04/03/25 22:46 Freq: Status: Active Protocol: Document 04/04/25 12:31 BF (Rec: 04/04/25 12:33 BF [id number]) Discharge Planning Assessment Assigned Discharge PHIL Escamilla Global Coordinator Provider in [place] Insurance Medicare Advance Directives? No Advance Directives No on File History Provided By Patient,Medical Record Has Patient been No admitted in last 30 days? Prior Living House Arrangements Comment LIVES IN [place] Household Members spouse Type of Drives own vehicle transporation used prior to admit Independent with ADL Yes 's Is patient alert and Yes oriented? Caregiver for Yes: currently here staying with Dtr to assist her with Another childcare Barriers to No Discharge Discharge Plan Home Transportation Dtr will transport at d/c Arrangement Referrals Initiated None needed Whiteboard Updated Yes in Patient Room with name and ext. # of Engineering Faculty Review Status In Process Please Provide Date 04/04/25 Initial DC Assessment Was Performed Next Review Type Continued Stay Review
--- NOTE | 2025-04-04 14:13 | PC.NURSE ---
Nicardipine gtt off since 1200, BP 122/82 MAP 99 HR 59, pt tolerating well, no further needs at this time, call light within reach, care ongoing
[2025-04-04] MEDS: INSULIN GLARGINE 100 UNIT/ML 3ML PEN 30 UNIT SUBCUT (21:13)
[2025-04-04] MEDS: HEPARIN 5,000 UNIT/ML VIAL 5000 UNIT SUBCUT (21:14)
[2025-04-05 00:04] VITALS: BP 155/95; PULSE 74; RESP 16; TEMP 36.6; O2SAT 98
[2025-04-05 04:00] VITALS: BP 159/97; PULSE 64; RESP 16; TEMP 36.3; O2SAT 99
--- NOTE | 2025-04-05 07:18 | P.DS_ITS ---
History of Present Illness History of Present Illness Date Patient Seen: 04/05/25 Chief complaint: Dizziness [id number] Narrative: 64-year-old male with past medical history of hypertension, presents with elevated blood pressure lightheadedness. Per the patient's report, the patient ran out of his blood pressure medication for the last month. The patient was on amlodipine and losartan. The patient is here visiting from [place]. Today the patient started to have some lightheaded which she has been intermittently experiencing over the last few weeks. The patient also checked his blood pressure and noted to be very elevated. Otherwise the patient denies any focal weakness, numbness, slurred speech, facial drooping or headache. In the emergency room, the patient was very hypertensive with systolic as high as [address] of the head shows no acute finding. Lab shows a sodium of 132 creatinine 1.27 and a glucose of 424. Trope was 0.02. EKG shows no signs of acute ischemia. The patient was given multiple antihypertensive IV medication followed by nicardipine drip. Our ER physician requested admission to the ICU for blood pressure control. Discharge Providers Provider Date of admission: 04/03/25 22:16 Discharge Date: 04/05/25 Primary care physician: PCP in [place] Discharge provider: Abigail Eaton MD Summary Hospital Course Hospital Course: Hypertensive urgency. Presenting blood pressures was 249/130. This was treated with IV nicardipine in the intensive care unit which was eventually weaned and metoprolol was added to his home amlodipine and losartan. With a very small dose of metoprolol he responded quickly and the dose was adjusted to 25 mg succinate daily. He was instructed to follow up with his PCP very soon and not to stop taking his blood pressure medicines again in the future. NIDDM. Admitting Glucose in the 400s and A1c of 13.2. Lantus 30 units HS along with lispro 3 units a.c. and glipizide 10 mg b.i.d will be his new home regimen. Will need to be evaluated by his PCP to make sure that is effective as his blood sugars have continued in the 200s with the Lantus. We did not use the glipizide while in the hospital. Hyponatremia. Sodium 132. Likely due to hypoglycemia. Pseudo hyponatremia. Treat hyperglycemia monitor sodium level. Mild elevated creatinine. Unclear what baseline creatinine is. Creatinine today 1.2. Monitor for now. Status at Discharge Cognitive/behavioral status at discharge: oriented Functional status at discharge: independent ambulation Overall status at discharge: patient is back to baseline Time Spent with Patient Time spent: Less than 30 minutes Exam Vital Signs (past 8 hours): - 04/05/25 00:04 04/05/25 04:00 Temperature 97.8 F 97.3 F L Pulse Rate 74 64 Respiratory Rate 16 16 Blood Pressure 155/95 H 159/97 H Pulse Oximetry 98 99 Oxygen Flow Rate 0 0 Oxygen Delivery Method Room Air Oxygen Flow Rate 0 Narrative Exam Narrative: Alert and oriented x3. No apparent distress. Heart is regular rate and rhythm without murmur Lungs are clear to auscultation bilaterally Extremities have no ankle edema Objective Labs 04/04/25 05:14 04/04/25 05:14 Labs: Laboratory Results - last 24 hr 04/04/25 04/04/25 04/04/25 11:44 16:43 21:07 POC Whole Bld Glucose 367 H 234 H D 283 H PFSH Social History household members: spouse Smoking Status: Never smoker alcohol intake: never Discharge Plan Discharge Plan Patient Disposition: Home Provider Discharge Comment: Follow up with your doctor in [place] within 2 weeks. Discharge orders & Medications Prescriptions: New glipizide 10 mg Tablet 10 mg PO BIDWM Qty: 60 0RF insulin glargine [Lantus Solostar U-100 Insulin] 100 unit/mL (3 mL) Insulin Pen 30 unit SUBCUT BEDTIME Qty: 15 0RF losartan 50 mg Tablet 50 mg PO DAILY Qty: 30 0RF metoprolol succinate 25 mg Tablet Extended Release 24 Hr 25 mg PO DAILY Qty: 30 0RF insulin lispro [Admelog U-100 Insulin lispro] 100 unit/mL Solution 3 unit SUBCUT AC Qty: 15 0RF amlodipine 10 mg tablet 10 mg PO DAILY Qty: 30 0RF Discontinued losartan 50 mg tablet 50 mg PO DAILY amlodipine 10 mg tablet 10 mg PO DAILY glipizide 10 mg tablet 10 mg PO BID Diet/Activity/Treatments Diet: Carb-consistent/Diabetic Visit Report/Discharge Packet Stand Alone Forms: Patient Portal/API, Stroke Signs & Symptoms Discharge Data Attending Provider: Ivan Epstein Admit Date/Time: 04/03/25 22:16 Quality VTE Deep Vein Thrombosis/Pulmonary Embolism Present on Admission: No
[2025-04-05 08:00] VITALS: BP 171/98; PULSE 59; RESP 21
[2025-04-05] MEDS: INSULIN LISPRO 100 UNIT/ML 3ML VIAL SUBCUT ×3 (08:08→12:11)
[2025-04-05 08:09] VITALS: BP 171/98; PULSE 60
[2025-04-05] MEDS: METOPROLOL ER 25 MG TABLET PO (08:09)
[2025-04-05] MEDS: LOSARTAN 50 MG TABLET PO (08:09)
[2025-04-05] MEDS: HEPARIN 5,000 UNIT/ML VIAL 5000 UNIT SUBCUT (08:10)
[2025-04-05] MEDS: SODIUM CHLORIDE 0.9% FLUSH 10 ML IV (08:11)
--- NOTE | 2025-04-05 10:38 | CM.DPNOTE ---
DCP note FORM[employer]ATOR [employer]ER reviewed EMR per provider, pt cleared for dc home today. FORMULATOR COMPOUNDER met with pt in room. denied any DCP needs. eager to return to [facility] P: dc home today with family support, plans for F/u with OP provider in [place] as needed. will continue to follow in case any DCP needs should arise PHIL Wilson
--- NOTE | 2025-04-05 12:17 | PC.NURSE ---
Addendum entered by Nevaeh Alva RN 04/05/25 14:11: Pharmacist provided education on insulin and other diabetes medication. Pt's ride arrived, pt wheeled via w/c to private vehicle with PCT and adult daughter at approximately 1400. Original Note: Discharge: Pt agreeable to discharge. IV's discontinued, telemetry removed. Discharge instructions provided to pt on diabetes management, checking glucose, medications, glucose control when sick, diabetic friendly foods, and blood pressure checks and medication, stroke s/s. Pt stated daughter to pick him up. Pt states daughter cannot nut picker until after 12:30 due to childcare issues. Care ongoing.
== END 2025-04-05 14:00 | disposition home or self-care (01) | DRG 305 ==
LOC: ED 21:34 → ICU 04-04 15:49 → AC 04-06 06:15 → ICU 04-06 06:15
PROVIDERS: Admitting Provider Internal Medicine; Emergency Provider Emergency Medicine; Visit Provider Internal Medicine
DX: I16.0 Hypertensive urgency (principal); I10 Essential (primary) hypertension; T46.1X6A Underdosing of calcium-channel blockers, initial encounter; T46.5X6A Underdosing of other antihypertensive drugs, initial encounter; E11.65 Type 2 diabetes mellitus with hyperglycemia; T38.3X6A Underdosing of insulin and oral hypoglycemic [antidiabetic] drugs, initial encounter; R79.89 Other specified abnormal findings of blood chemistry; Z86.73 Personal history of transient ischemic attack (TIA), and cerebral infarction without residual deficits; Z91.148 Patient's other noncompliance with medication regimen for other reason
CPT/HCPCS: 36415; 70450; 80048; 80053; 82550; 82962; 83036; 84484; 85025; 87797; 93005; 96365; 99284; 99291; G0378; J1644; J1815